=== PATIENT | male | born 1985 | race Caucasian/White ===

== ENCOUNTER 2023-02-12 10:48 | Emergency (ER) | payer MEDICAID, MEDICARE ==
[~2023-02-12] VITALS: Ht 139.7 cm; Wt 56.8 kg
[~2023-02-12 10:48] MED LIST: IBUP-1573 PO; ONDA4TAB59 PO
[2023-02-12 11:02] VITALS: BP 124/90
== END 2023-02-12 14:42 | disposition left against medical advice (07) ==
LOC: ER 10:48
DX: M25.552 Pain in left hip (principal); Z53.21 Procedure and treatment not carried out due to patient leaving prior to being seen by health care provider
CPT/HCPCS: 99281

== ENCOUNTER 2025-03-01 14:10 | Emergency (ER) | payer MEDICAID ==
[~2025-03-01] VITALS: Ht 139.7 cm; Wt 44.0 kg
[2025-03-01 14:47] LABS: BASOPHILS # (AUTO) 0.1 X10'3 (0-0.2); BASOPHILS % (AUTO) 0.8 % (0-1); EOSINOPHILS % (AUTO) 0.3 % (0-6); HEMATOCRIT 45.1 % (42.0-52.0); HEMOGLOBIN 15.5 g/dl (14.0-17.9); LYMPHOCYTES # (AUTO) 1.1 X10'3 (1.1-4.8); LYMPHOCYTES % (AUTO) 9.3 % (21-51); MEAN CORPUSCULAR HEMOGLOBIN 28.5 PG (27.0-31.0); MEAN CORPUSCULAR HGB CONC 34.3 g/dL (33.0-36.5); MEAN CORPUSCULAR VOLUME 83.1 FL (78-98); MEAN PLATELET VOLUME 6.7 FL (7.4-10.4); MONOCYTES # (AUTO) 0.8 X10'3 (0-0.9); MONOCYTES % (AUTO) 6.9 % (2-12); NEUTROPHILS # (AUTO) 9.9 X10'3 (1.8-7.7); NEUTROPHILS % (AUTO) 82.7 % (42-75); PLATELET COUNT 537 X10'3 (140-440); RED BLOOD COUNT 5.43 X10'6 (4.70-6.10); RED CELL DISTRIBUTION WIDTH 12.9 % (11.5-14.5); WHITE BLOOD COUNT 11.9 X10'3 (4.5-11.0)
[2025-03-01 15:34] LABS: ALANINE AMINOTRANSFERASE 24 U/L (12-78); ALBUMIN 4.2 G/DL (3.4-5.0); ALKALINE PHOSPHATASE 117 IU/L (46-116); ANION GAP 10 (8-16); ASPARTATE AMINO TRANSFERASE 16 U/L (10-37); BLOOD UREA NITROGEN 31 MG/DL (7-18); BUN/CREATININE RATIO 31.6 (10.0-20.0); CALCIUM 9.7 MG/DL (8.5-10.1); CHLORIDE 91 MMOL/L (99-107); CREATININE 0.98 MG/DL (0.60-1.10); GLUCOSE 115 MG/DL (70-104); LIPASE 58 U/L (16-77); SODIUM 139 MMOL/L (135-145); TOTAL CARBON DIOXIDE 38.3 MMOL/L (24-32); TOTAL PROTEIN 8.6 G/DL (6.4-8.2); eCRCL 54 ML/MIN; eGFR 84 ML/MIN
[2025-03-01 15:35] LABS: POTASSIUM 3.5 MMOL/L (3.5-5.1)
--- NOTE | 2025-03-01 17:10 | Physician Documentation ---
History of Present Illness ~ Chief Complaint: Abdominal Pain w/vomiting Stated Complaint: ABD PAIN/PANCREATITIS Time Seen by MD: 16:33 Primary Medical Doctor: NONE HPI 39-year-old male presenting with acute onset vomiting that has been ongoing for the past couple of weeks. The patient states that he has continuous intractable vomiting despite being prescribed antiemetic medications. He has had two separate ER visits at [facility] and both times has been discharged and sent home with oral medications that have not worked. He describes the vomiting as mainly nonbloody but most recently over the last few hours he noticed that he had a couple episodes with some streaks of blood. He denies any significant abdominal pain but states that he was told that he has pancreatitis. Denies any fever, chills, diarrhea, constipation or any other associated symptoms. Medication Reconciliation Allergies: Coded Allergies: Penicillins (Verified Allergy, Unknown, 02/12/23) amoxicillin (Verified Allergy, Unknown, 02/12/23) Scheduled Ibuprofen (Ibuprofen), 600 MG PO Q6H Ondansetron Hcl (Ondansetron Hcl), 4 MG PO Q8H PRN N/V Sucralfate (Sucralfate), 1 TAB PO Q6H Past Medical History Past Medical History: *MUSCULOSKELETAL*, Chronic Pain, Cellulitis Alcohol Use: Occasionally Drug Use: none Lives with: S/O Lives In: Home Occupation: disabled Review of Systems All Other Systems at this time: Reviewed and Negative Physical Exam Vital Signs: Temperature: 98.4, Source: Oral, Heart Rate: 112, Respiratory Rate: 16, BP: 138/97, Pulse Oximetry: 94, Weight: 44.000 Oxygen Flow Rate: 0 Physical Exam I have reviewed the triage vitals. CONST: Well developed and well nourished. Nauseated HENT: Head Atraumatic EYES: Pupils are equal, round and reactive to light. Normal conjunctiva NECK: Normal range of motion. Supple. CARDIO: Normal rate and regular rhythm. No murmurs, rubs, or gallops. S1, S2. PULM/CHEST: No respiratory distress. Lungs clear to auscultation. No wheeze ABD: Soft. Nondistended. Bowel sounds normal. No guarding. Umbilical hernia is present. Mild tenderness to palpation over the epigastrium. : Exam deferred MSK: No edema. No deformity. NEURO: Alert and oriented to person, place and time. Moving all extremities SKIN: Warm and dry. PSYCH: Normal mood and affect. Good eye contact. Progress Results/Orders Results/Orders Completed Orders - BRIAN MORILLO MD Pantoprazole 40mg Iv (Protonix 40mg Iv) (03/01/25 21:35) Sucralfate Tablet (Carafate Tablet) (03/01/25 21:35) Medications Received in ER Medications (Trade) Dose Ordered Sig/Lan Route PRN Reason Start Time Stop Time Status Last Admin Dose Admin Sodium Chloride 1,000 ml @ 1,000 mls/hr ONCE ONCE IV 03/01/25 17:05 03/01/25 18:04 DC 03/01/25 17:58 1,000 MLS/HR (Zofran 4mg/2ml vial) 4 mg ONCE ONCE IV 03/01/25 17:05 03/01/25 17:06 DC 03/01/25 18:00 4 MG (Protonix 40mg IV) 40 mg ONCE ONCE IV 03/01/25 17:05 03/01/25 17:06 DC 03/01/25 17:59 40 MG Vital Signs 03/01/25 03/01/25 03/01/25 03/01/25 14:12 18:04 18:04 18:58 Temp 98.4 98.4 Pulse 112 90 Resp 16 18 18 B/P (MAP) 138/97 120/90 (100) Pulse Ox 94 96 O2 Flow Rate 0 0 03/01/25 03/01/25 03/01/25 18:58 20:46 22:21 Temp 98.4 98.4 98.0 Pulse 78 84 84 Resp 18 18 16 B/P (MAP) 120/87 (98) 137/101 (113) 140/87 Pulse Ox 96 96 100 O2 Flow Rate 0 0 Laboratory Tests Test 03/01/25 14:34 03/01/25 15:11 03/01/25 19:40 White Blood Count 11.9 H Red Blood Count 5.43 Hemoglobin 15.5 Hematocrit 45.1 Mean Corpuscular Volume 83.1 Mean Corpuscular Hemoglobin 28.5 Mean Corpuscular Hemoglobin Concent 34.3 Red Cell Distribution Width 12.9 Platelet Count 537 H Mean Platelet Volume 6.7 L Neutrophils (%) (Auto) 82.7 H Lymphocytes (%) (Auto) 9.3 L Monocytes (%) (Auto) 6.9 Eosinophils (%) (Auto) 0.3 Basophils (%) (Auto) 0.8 Neutrophils # (Auto) 9.9 H Lymphocytes # (Auto) 1.1 Monocytes # (Auto) 0.8 Eosinophils # (Auto) 0.0 Basophils # (Auto) 0.1 CBC Comment Chemistry Comments Sodium Level 139 Potassium Level 3.5 Chloride Level 91 L Carbon Dioxide Level 38.3 H Anion Gap 10 Blood Urea Nitrogen 31 H Creatinine 0.98 Estimated GFR/1.73 m2 84 BUN/Creatinine Ratio 31.6 H Glucose Level 115 H Calcium Level 9.7 Total Bilirubin 1.0 Aspartate Amino Transf (AST/SGOT) 16 Alanine Aminotransferase (ALT/SGPT) 24 Alkaline Phosphatase 117 H Troponin I High Sensitivity < 4 L Troponin I High Sens Percent Delta Troponin I Hi Sens Absolute Change Total Protein 8.6 H Albumin 4.2 Globulin 4.4 H Albumin/Globulin Ratio 1.0 L Lipase 58 Ethyl Alcohol Level < 10 Urine Specimen Description Cln catch midstream Urine Color Yellow Urine Clarity Clear Urine pH 8.5 Urine Specific [place] 1.015 Urine Protein 100 H Urine Glucose (UA) Negative Urine Ketones >=80 Urine Occult Blood Negative Urine Nitrite Negative Urine Bilirubin Moderate Urine Urobilinogen 1.0 Urine Leukocyte Esterase Negative Urine RBC None seen Urine WBC 0-4 Urine Squamous Epithelial Cells Few Urine Bacteria None seen Urine Mucus Few Urine Culture Indicated Not ind Volume Urine Centrifuged 10 ml Urine Comment Urine Opiates Screen Negative Urine Methadone Screen Negative Urine Fentanyl Screen Negative Urine Barbiturates Screen Negative Urine Phencyclidine Screen Negative Urine Amphetamines Screen Negative Urine Benzodiazepines Screen Negative Urine Cocaine Screen Negative Urine Cannabinoids Screen Negative Drug Screen Comment Departure Time of Disposition: 21:49 Disposition: 01 HOME / SELF CARE / HOMELESS Impression: Primary Impression: Acute gastritis Additional Impression: Nausea and vomiting Discharge Instructions: Gastritis, Adult Referrals: NO PRIMARY CARE PROVIDER (PCP) Prescriptions Sucralfate (Sucralfate) 1 Gram Tablet 1 TAB PO Q6H for 30 Days, #120 TAB 0 Refills Prov: BRIAN MORILLO MD 03/01/25 Comments Your testing today again did not show any dangerous findings. Your symptoms seem most likely related to inflammation in your stomach or a stomach ulcer. This is called gastritis or peptic ulcer disease. See information attached. This can take a while to get better, but is treatable. Treatment plan: 1. Start taking omeprazole 20 mg twice a day for 2 weeks. After this take omeprazole 20 mg once a day for 2 weeks. Talk to your primary care doctor about how long to continue after this. Get the cheapest generic version. 2. Take the sucralfate as prescribed for 2-4 weeks. Take it 15-30 minutes before a meal, and before bedtime. 3. Continue to take the nausea medications you have at home 4. Eat a bland diet, and try to drink plenty of fluids including fluids with electrolytes Follow-up with your primary care doctor for further evaluation and treatment. They can refer you to see a GI specialist if you continued to have symptoms. Education Educated: Patient, Family Educated regarding: diagnosis, treatment, prognosis, need for follow up Additional Comment Addendum I received sign-out on this patient at shift change. Briefly: 1 week of uncontrollable nausea and vomiting. He has been seen at an outside ER, with 2 CT scans without dangerous findings. He has multiple nausea medications at home. Pending: Labs, re-evaluation 9:30 p.m.: Re-evaluation: The patient states he was nausea is feeling better. He does report to me that he has been having epigastric pain with a burning feeling up into his throat. He was not on a daily antacid medication. After this discussion, I suspect that he actually is having gastritis or peptic ulcer disease as the underlying cause of his symptoms. He was given IV Protonix and sucralfate. Following this he did tolerate oral hydration. Plan: The patient will be discharged home, with a plan for omeprazole and sucralfate, dietary changes, and PCP follow-up to discuss a referral to GI for endoscopy if his symptoms do not improve. Dr. Ender JEONG Signature Scribe Signature: na Attestation: JAREN Landon MD Mar 01, 2025 17:10 BRIAN MORILLO MD Mar 01, 2025 21:53
[2025-03-01 17:41] LABS: ETHANOL < 10 MG/DL (<10)
[2025-03-01] MEDS: normal saline 1000ml 1,000 ML IV ONE (17:58)
[2025-03-01] MEDS: pantoprazole 40 MG vial IV ONE (17:59)
[2025-03-01] MEDS: ondansetron/PF 4mg/2ml inj IV ONE (18:00)
[2025-03-01 20:00] LABS: BILIRUBIN,URINE MODERATE (Neg); CLARITY,URINE CLEAR (Clear); COLOR,URINE YELLOW (Yellow); GLUCOSE, URINE NEGATIVE (Neg); KETONES,URINE >=80 mg/dl (Neg); LEUKOCYTE ESTERASE ,URINE NEGATIVE (Neg); NITRITES, URINE NEGATIVE (Neg); OCCULT BLOOD,URINE NEGATIVE (Neg); PH,URINE 8.5 (4.8-8.0); PROTEIN,URINE 100 mg/dl (Neg)
[2025-03-01 20:04] LABS: UA COLLECTION TYPE CLN CATCH MIDSTREAM
[2025-03-01 20:06] LABS: BACTERIA,URINE NONE SEEN /HPF (Neg); MUCUS STRANDS FEW /LPF (Neg); RBC,URINE NONE SEEN /HPF (0-2); SQUAMOUS EPITHELIAL CELL,UR FEW /LPF (FEW); WBC,URINE 0-4 /HPF (0-4)
[2025-03-01 20:12] LABS: URINE AMPHETAMINE SCREEN NEGATIVE (Neg); URINE BARBITUATE SCREEN NEGATIVE (Neg); URINE BENZODIAZEPINES SCREEN NEGATIVE (Neg); URINE CANNABINOID SCREEN NEGATIVE (Neg); URINE COCAINE SCREEN NEGATIVE (Neg); URINE METHADONE SCREEN NEGATIVE (Neg); URINE OPIATE SCREEN NEGATIVE (Neg); URINE PHENCYCLIDINE SCREEN NEGATIVE (Neg)
[2025-03-01] MEDS ORDERED: sucralfate 1 gm tablet PO ONE (21:35)
[2025-03-01] MEDS ORDERED: pantoprazole 40 MG vial IV ONE (21:35)
[2025-03-01] MEDS ORDERED: SUCR1TAB PO (21:53)
[2025-03-01 22:21] VITALS: BP 140/87; PULSE 84; RESP 16; TEMP 98; O2SAT 100
--- NOTE | 2025-03-02 06:35 | ELECTROCARDIOGRAPH REPORT ---
[facility] Test Date: 2025-03-01 Test Time: 18:07:48 Pat Name: MARISA MCKEON Department: EMERGENCY ROOM Room: Gender: M [employer] Colerer: MICHAEL : 1985 Requested By: JAREN PEREZ Order Number: [id number] Reading MD: Dr. Joao Valdez Measurements Intervals [place] Rate: 80 P: 49 WA: 161 QRS: 45 QRSD: 92 T: 45 QT: 381 QTc: 440 Interpretive Statements Sinus rhythm Left atrial enlargement RSR' in V1 or V2, right VCD or RVH Electronically Signed On 03-02-2025 19:02:[address] Joao Valdez Please click the below link to view image of tracing.
== END 2025-03-01 22:44 | disposition home or self-care (01) ==
LOC: ER 14:11
DX: K29.00 Acute gastritis without bleeding (principal); Z88.0 Allergy status to penicillin
CPT/HCPCS: 36415; 80053; 80305; 80320; 81001; 83690; 84484; 85025; 93005; 96365; 96375; 99285; J2405; J2470; J7030